=== PATIENT | male | born 1935 | race Caucasian/White ===

== ENCOUNTER 2018-01-14 13:00 | Day surgery (SDC) | payer OTHER, BC ==
[~2018-01-14] VITALS: Ht 182.9 cm; Wt 110.9 kg
[2018-01-14 13:52] VITALS: BP 110/55; PULSE 73; TEMP 96.5
[2018-01-14] MEDS ORDERED: MULTIPLE VITAMI1 CAP PO (13:56)
[2018-01-14] MEDS ORDERED: ASPIRIN 32325 MG/TAB PO (13:56)
[2018-01-14] MEDS ORDERED: NEURONTIN600 MG/TAB PO (13:57)
[2018-01-14] MEDS ORDERED: LOPID 600M600 MG/TAB PO (13:58)
[2018-01-14] MEDS ORDERED: PLAVIX 75MG TAB75 MG PO (13:58)
[2018-01-14] MEDS ORDERED: ISOSORBIDE MON120 MG PO (13:59)
[2018-01-14] MEDS ORDERED: MASON NATURAL1200 MG PO (14:00)
[2018-01-14] MEDS ORDERED: ZETIA 10MG TAB10 MG PO (14:00)
[2018-01-14] MEDS ORDERED: NIACIN 64 MG-501 TA1 PO (14:02)
[2018-01-14] MEDS ORDERED: B-121000 MCG PO (14:03)
[2018-01-14] MEDS ORDERED: PROTONIX 40MG T40 MG PO (14:03)
[2018-01-14] MEDS ORDERED: GLUCOPHAGE1000 MG PO (14:04)
[2018-01-14] MEDS ORDERED: VITAMIN D31000 I1 PO (14:05)
[2018-01-14] MEDS ORDERED: PRINIVIL20 MG PO (14:05)
[2018-01-14] MEDS ORDERED: LOPRESSOR 550 MG/TAB PO (14:06)
[2018-01-14] MEDS ORDERED: CLARITIN 1010 MG/TAB PO (14:07)
[2018-01-14] MEDS ORDERED: MOTRIN 800800 MG/TAB PO (14:08)
[2018-01-14 15:00] VITALS: BP 134/73; PULSE 76; TEMP 96.9
[2018-01-14 15:15] VITALS: BP 139/68; PULSE 78
[2018-01-14 15:30] VITALS: BP 143/78; PULSE 71
== END 2018-01-14 15:45 | disposition home or self-care (01) ==
LOC: SDCO 13:00
DX: Z12.11 Encounter for screening for malignant neoplasm of colon (principal); K57.30 Diverticulosis of large intestine without perforation or abscess without bleeding; K59.00 Constipation, unspecified; E78.00 Pure hypercholesterolemia, unspecified; E11.9 Type 2 diabetes mellitus without complications; K21.9 Gastro-esophageal reflux disease without esophagitis; G47.30 Sleep apnea, unspecified; M19.90 Unspecified osteoarthritis, unspecified site; I25.10 Atherosclerotic heart disease of native coronary artery without angina pectoris; I10 Essential (primary) hypertension; Z86.010 Personal history of colon polyps; Z88.8 Allergy status to other drugs, medicaments and biological substances; Z79.82 Long term (current) use of aspirin; Z79.84 Long term (current) use of oral hypoglycemic drugs; Z95.1 Presence of aortocoronary bypass graft
CPT/HCPCS: J2704; J7030